=== PATIENT | female | born 1970 | race Caucasian/White ===

== ENCOUNTER → 2016-08-16 | Outpatient (CLI) | payer BC | LOC: LAB 06:32 | DX: E03.9 Hypothyroidism, unspecified (principal) ==

== ENCOUNTER 2017-03-20 07:14 | Observation (INO) | payer BC ==
[2017-03-20] VITALS (14 sets, daily range): BP systolic 111–148; BP diastolic 72–89
[~2017-03-20] VITALS: Ht 167.6 cm; Wt 80.3 kg
--- NOTE | 2017-03-20 11:45 | Anesthesia Record ---
Anesthesia Record Part I Total IV fluids: 2200 EBL (ml): 250 Urine Output: 300 B/P: 118/76 % SaO2: 96 Pulse: 105 Resps: 12 Temp: 98 Patient is: Awake, Stable Stable to PACU at: 1140 at 1145
--- NOTE | 2017-03-20 11:45 | Anesthesia Record ---
Anesthesia Record Part II Discharge time: 1210 Destination: Second Floor PACU nurse assessment review? Yes Patient is: Awake, Stable Anesthesia complications? No at 1141
--- NOTE | 2017-03-20 11:53 | Operative Note ---
Procedure/Operative Record Procedure Date of procedure: 03/20/17 Pre-Op Dx: Menorrhagia, pelvic pain, dysmenorrhea, history of endometriosis, genuine stress urinary incontinence Post-Op Dx: Menorrhagia, pelvic pain, dysmenorrhea, history of endometriosis, genuine stress urinary incontinence, 3 cm LEFT ovarian cyst ,small bladder injury. Procedure performed: Laparoscopically assisted vaginal hysterectomy and bilateral salpingectomy, tension-free vaginal tape, repair of small bladder tear Surgeon: Dr. Osito Mccall Yard Coordinator(s): Kailyn Rogers Anesthesia: Deni Garcia EBL (ml): 250 Clinical note: She is a 46-year-old 1 now para 1 lady who complains of pelvic pain as well as dysmenorrhea. She also has extremely heavy periods. She had stress incontinence that was demonstrated in my office at the time of urodynamics. after having discussed the risks and benefits she elected to have a laparoscopically assisted vaginal hysterectomy and bilateral salpingectomy. She also had TVT. Operative findings: She had a bulky anteverted uterus. The tubes were previously ligated with Filshie clips. She had a 3 cm simple cyst on the LEFT ovary. There was endometriosis in the pelvis. Specifically there was what appeared to be endometriosis over the distal rectum. Otherwise the pelvis was Normal. On examination of her bladder appeared normal. At the end of the case there were jets of urine seen flowing from the ureters. Operative note: She was taken the operating room where general anesthesia was found be adequate. She was prepped and draped in normal sterile fashion in the semi-lithotomy position. A weighted speculum was placed in the vagina and the anterior lip of the cervix was grasped with a tenaculum. I dilated the cervix to approximate 4 mm. I then inserted a Adelita uterine manipulator into the uterine cavity. I injected approximately 10 mL of 1 percent Xylocaine around the umbilicus. I made a small incision within the umbilicus and inserted a Veress needle into the abdominal cavity. The abdominal cavity was then insufflated with carbon dioxide gas to a pressure of 20 mmHg. I then inserted an 11 mm trochar under direct vision. I injected through and through the pubic hairline, made a small incision here and inserted a 5 mm trocar under direct vision. I then identified the inferior epigastric arteries on the LEFT side, went lateral to these and injected through and through. I then did a small skin incision and inserted an 11 mm trocar under direct vision. This was similarly performed on the RIGHT side. The LEFT round ligament was then grasped with Harmonic scalpel and cut through. I then opened up the anterior peritoneum to the midline. I then grasped the LEFT tube and cut through this with Harmonic scalpel. I then cut through the utero- ovarian ligament with Harmonic scalpel. I then took down the posterior aspect of the broad ligament to the level of the uterosacral ligament. The uterine arteries on the LEFT side were then skeletonized. Hemoclips were applied across the uterine arteries and then Harmonic scalpel was used adjacent to the cervix to take down the uterine arteries on the LEFT side. I then grasped the LEFT ovary and made a small incision into the ovarian cyst. I drained the fluid out of the cyst. We then took down the RIGHT round ligament followed by opening up the peritoneum to the midline joining up with the other side. We then cut through the RIGHT tube and RIGHT utero-ovarian ligament. I took down the posterior aspect of the broad ligament to the level of the uterosacral ligament on the RIGHT side. The uterine arteries on the RIGHT side were then skeletonized and hemoclips applied to the uterine arteries. I then took down the uterine artery on the RIGHT side using Harmonic scalpel adjacent to the cervix. At this point it was noted that the uterus was completely ischemic. I freed up the bladder anteriorly using Harmonic scalpel and blunt dissection. After assuring hemostasis I then removed the fallopian tube starting on the RIGHT side I picked up the distal end of the fallopian tube and using harmonic scalpel I cut along the meso salpinx. The tube was then removed through the 11 mm trocar site. This was similarly performed on the opposite side. We assured hemostasis and then let the gas out of the abdomen. We then turned our attention to the vaginal portion the surgery. The patient was placed in the lithotomy position and a weighted spec was placed in the vagina. The anterior and posterior lip of the cervix were grasped with Estes tenacula. I injected approximately 20 mL of 1 percent Xylocaine with epinephrine circumferentially about the cervix. I then circumscribed the cervix with knife. The posterior cul-de-sac was then opened up using Escalante scissors. A long weighted speculum was then placed through this defect. LEFT uterosacral ligament was then clamped cut and suture ligated, and tagged. The LEFT cardinal ligament was then clamped cut and suture ligated. The RIGHT uterosacral ligament was then clamped, cut, suture-ligated and tagged. This was followed by the RIGHT cardinal ligament. I then grasped the anterior peritoneum and using both sharp and blunt dissection dissected the bladder off anteriorly. I removed the long weighted speculum and replaced it with a short weighted speculum. The posterior cuff of the vagina was then closed using running 2-0 Vicryl suture in a locked fashion. I then placed a Giles suture using 0 PDS first through the vagina and peritoneum and then through the LEFT pararectal fascia. I plicated across the posterior peritoneum and then through the RIGHT pararectal fascia. This was then passed through the peritoneum and vagina and LEFT to be tied at the end. I then grasped the anterior peritoneum and I noted that there was a small 2 mm area on the anterior bladder that was leaking. I closed this small rent with a [id number] 2-0 Vicryl suture. I then closed the peritoneum in a pursestring fashion using 2-0 PDS suture. Once again I checked for hemostasis and also noted that there was no further leakage from the bladder. The vaginal mucosa was then closed using running0 Vicryl suture in a locked fashion from LEFT to RIGHT from anterior to posterior. The Giles suture was then tied. I then changed gloves and once again inspected the pelvis. The pelvis was completely hemostatic. I rinsed the pelvis well with warm saline. There was no evidence of leakage of urine. There is no fluid in the pelvis when I returned to the laparoscopic portion of the surgery. After once again assuring hemostasis of then placed 2 pieces of Surgicel at the vaginal vault. The secondary trochars were then removed under direct vision. The sites were hemostatic. I then closed the 11 mm trocar sites deeply with 2-0 Vicryl suture followed by interrupted subcuticular 4-0 Monocryl suture. The 5 mm trocar site was closed with subcuticular 4-0 Monocryl suture. Sterile dressings were applied. the patient was then placed in the lithotomy position and I injected 20 mL of 1 percent Xylocaine with epinephrine along the anterior bladder just below the urethra. I then injected out towards each pubic rami bilaterally. I grasped the anterior mucosa of the vagina just below the urethra and then for another 3 cm. I made a small incision in the vagina between the 2 Allis clamps. The edges of the vaginal mucosa were then grasped with Allis clamps and I dissected out bilaterally to each pubic rami using Metzenbaum scissors. I then drained the bladder and clear fluid was seen to flow. There is no evidence of blood in the bladder. I placed the obturator in the bladder and pulled it to the LEFT side. I placed the LEFT side of the tape first under the pubic rami and through the urogenital diaphragm. It was then passed through the space of Retzius and out through the skin. I then inspected the bladder with a 70 degree cystoscope. There was no evidence of tape in the bladder. There was no evidence of the trocar in the bladder. I observed where there was a small folded up area in the bladder where the small rent had been. There was no evidence of suture within the bladder. It was well clear of the trigone and superior to this. It was in the midline. Jets of urine were seen to flow from both ureters. I then passed the trocar completely through the skin and cut off the trocar. The outer sheath was grasped with a straight clamp. The bladder was drained and the refinery operator light ends recovery was placed in the bladder and pulled to the RIGHT side. I then placed the RIGHT side of the tape under the pubic rami and through the urogenital diaphragm. It was then passed through the space of Retzius and out through the skin. Once again I inspected the bladder with the cystoscope and there was no evidence of tape in the bladder. I then pulled the trocar completely through the skin and cut off the trocar. I then placed a Kandace clamp underneath the urethra and remove the outer sheath of the tape. The tension on the tape was adequate. The vaginal mucosa was then closed with interrupted 2-0 Vicryl suture in a mattress fashion. Hemostasis was once again assured. A Frausto catheter was then placed in the bladder. Clear urine was seen to flow. We will keepa catheter for the next couple of weeks since she had a small rent in the bladder. The patient tolerated the procedure well and was taken to the recovery room in excellent condition. All sponge instrument and needle counts were correct. Estimated blood loss was approximately 250 mL. Conplications: 2 mm small bladder injury. Specimens: Uterus, fallopian tubes at 3502
[2017-03-20 14:58] LABS: URINE BILIRUBIN - DIPSTICK NEGATIVE (NEG); URINE BLOOD 2+ (NEG)
[2017-03-20 16:50] LABS: HEMOGLOBIN 12.9 g/dL (12.2-16.2)
[2017-03-21 04:00] VITALS: BP 104/74
[2017-03-21 06:55] LABS: LYMPH # 1.4 K/mm3 (0.7-4.5); LYMPH % 8.3 % (10-50.0)
[2017-03-21 07:06] LABS: HEMOGLOBIN 11.2 g/dL (12.2-16.2)
--- NOTE | 2017-03-21 08:11 | ACUTE CARE PROGRESS NOTE (QUA) ---
Progress Notes Subjective Date 03/21/17 Time 0808 Note Seems to be doing better this morning. Her pain is reasonably well-controlled. She is really not been ambulating at all yet. Her urine output is normal. She is eating and drinking. Patient/family reports: feeling better, no complaints Objective Findings Last VS-Temp:98.2 B/P:104/74 Pulse:89 Resp:18 SaO2:96 ROOM AIR Last weight lbs:177 oz:00 K.287 Method:Floor Scales Laboratory Tests 03/21/17 0634: Sodium 139, Potassium 3.9, Chloride 105, Carbon Dioxide 27, BUN 12, Creatinine 0.9, Estimated Creat Clear 100, Estimated GFR (MDRD) 68, Glucose 146 H, Calcium 8.2 L, WBC 17.4 H, RBC 3.72 L, Hgb 11.2 L, Hct 33.3 L, MCV 89.5, RDW 12.9, Plt Count 248, MPV 8.7, Gran % 86.7 H, Gran # 15.1 H, Lymphocytes % 8.3 L, Monocytes % 4.7, Eosinophils % 0.2, Basophils % 0.1, Lymphocytes # 1.4, Monocytes # 0.8, Eosinophils # 0.0, Basophils # 0.0, PUBS MCHC 33.3, MCH 29.8 03/20/17 1605: Hgb 12.9, Hct 39.0 03/20/17 1125: Urine Color YELLOW, Urine Appearance CLEAR, Urine pH 6.0, Ur Specific [place] <= 1.005, Urine Protein NEGATIVE, Urine Ketones NEGATIVE, Urine Blood 2+ H, Urine Nitrate NEGATIVE, Urine Bilirubin NEGATIVE, Urine Urobilinogen 0.2, Ur Leukocyte Esterase NEGATIVE, Urine RBC OCC, Urine WBC NONE, Ur Squamous Epith Cells NONE, Urine Bacteria NONE, Urine Glucose NEGATIVE Exam General appearance: normal appearance, alert, awake, no acute distress Eyes: normal exam ENT: normal exam Neck: normal inspection Cardiovascular: normal exam, normal sinus rhythm Respiratory: normal exam, aerating well, clear to auscultation ABD: normal exam, non-distended, normal bowel sounds, no rebound Genitourinary: normal voiding & quantity Extremities: normal exam, full range of motion Musculoskeletal: normal exam Skin: normal exam, normal color Reviewed: vital signs, lab results Assessment/Plan Problem List 1. Menorrhagia 2. Dysmenorrhea 3. Ovarian cyst 4. Stress incontinence (female) (male) Patient condition Improving, Stable Plan: continue current care This inpt stay is expected to cross 2 MNs from start of care No Comments: She is doing a little better this morning. We will plan to get her moving this morning. We will start oral pain medicine. If she does better this morning we will plan to send her home later today. at 0811
[2017-03-21 08:49] VITALS: BP 120/72
[2017-03-21 08:53] VITALS: BP 120/72
[2017-03-21 10:20] LABS: NEUTROPHILS 86 % (42-76)
--- NOTE | 2017-03-21 10:20 | PHARMACY CLINIC NOTE ---
Patient Demographics Patient Demographics Admission date: 03/20/17 Date: 03/21/17 Time: 1019 Allergies Coded Allergies: cephalexin (From KEFLEX) (03/20/17) HEIGHT- FT: 5 IN: 6.00 K.287 VTE General Information Labs: Laboratory Tests 03/21 03/20 0634 1605 Hematology Hgb (12.2 - 16.2 g/dL) 11.2 L 12.9 Hct (37.0 - 47.0 %) 33.3 L 39.0 Plt Count (142 - 424 K/mm3) 248 Disclaimer The following section includes nursing documentation that has been pulled in for pharmacy review. Patient's VTE score: 2 Patient's VTE Risk: VERY LOW RISK VTE prophylaxis NQF [id number] VTE prophylaxis ordered? Yes Type of prophylaxis/treatment: Lovenox at 1024
[2017-03-21 12:30] VITALS: BP 119/74
[2017-03-21] MEDS ORDERED: PERCOCET 5/3251 EACH PO (14:15)
[2017-03-21] MEDS ORDERED: MACROBID100 M3 PO (14:20)
--- NOTE | 2017-03-21 14:20 | Discharge Summary ---
Discharge Summary Admission date: 03/20/17 Discharge date: 03/21/17 Discharge diagnoses: Menorrhagia, dysmenorrhea, ovarian cyst, stress incontinence, small bladder injury Clinical note: She is a 46-year-old lady who complains of heavy painful periods. She also demonstrated stress incontinence in my office and requested TVT. Course in hospital: She is discharged homeOn March 20, 2017 she underwent a laparoscopically assisted vaginal hysterectomy and bilateral salpingectomy. She had a 3-4 cm LEFT ovarian cyst that was drained at the time of her surgery. She underwent tension- free vaginal tape as well. At the time of dissecting her bladder off the cervix was noted that there was a small hole in the bladder. It was approximately 1-2 mm in size. It was repaired with a single [id number] suture. She has done well postoperatively and has remained afebrile throughout her hospitalization. She is eating and drinking and ambulating. We have LEFT a Frausto catheter in and she will go home with a leg bag for the next 10 days. She denies any chest pain, shortness of breath or calf tenderness. Laboratory Tests 03/21/17 0634: Sodium 139, Potassium 3.9, Chloride 105, Carbon Dioxide 27, BUN 12, Creatinine 0.9, Estimated Creat Clear 100, Estimated GFR (MDRD) 68, Glucose 146 H, Calcium 8.2 L, WBC 17.4 H, RBC 3.72 L, Hgb 11.2 L, Hct 33.3 L, MCV 89.5, RDW 12.9, Plt Count 248, MPV 8.7, Gran % 86.7 H, Gran # 15.1 H, Total Counted 100, Lymphocytes % 8.3 L, Monocytes % 4.7, Eosinophils % 0.2, Basophils % 0.1, Neutrophils 86 H, Lymphocytes (Manual) 7 L, Lymphocytes # 1.4, Monocytes ( Manual) 7, Monocytes # 0.8, Eosinophils # 0.0, Basophils # 0.0, Platelet Estimate NORMAL, PUBS MCHC 33.3, MCH 29.8 03/20/17 1605: Hgb 12.9, Hct 39.0 03/20/17 1125: Urine Color YELLOW, Urine Appearance CLEAR, Urine pH 6.0, Ur Specific [place] <= 1.005, Urine Protein NEGATIVE, Urine Ketones NEGATIVE, Urine Blood 2+ H, Urine Nitrate NEGATIVE, Urine Bilirubin NEGATIVE, Urine Urobilinogen 0.2, Ur Leukocyte Esterase NEGATIVE, Urine RBC OCC, Urine WBC NONE, Ur Squamous Epith Cells NONE, Urine Bacteria NONE, Urine Glucose NEGATIVE Plans for ongoing care: She is discharged home to follow-up with me in approximately a weeks' time. She will go home with a catheter and leg bag. We will leave this in for about 10 days. Discharge medications She was given a prescription for Percocet 5/325, 30 tablets. She will also take Macrobid to prevent bladder infection. DC/follow-up instructions She was given the usual instructions with respect to limiting her activity, driving and sexual activity. She was given instructions with respect to wound care. Condition at discharge Stable and improved at 2247
[2017-03-21 15:15] VITALS: BP 119/74
--- OUTSIDE RECORDS SUMMARY | 2017-04-12 02:52 | External Medical Summary Rpt ---
Demographics Preferred Language Moldovan Marital Status Unknown Taoism Affiliation Unknown Race Unknown Ethnic Group Unknown Author Author DAJA Address Unknown Phone Immunization No patient found.
--- OUTSIDE RECORDS SUMMARY | 2017-04-12 02:52 | External Medical Summary Rpt ---
Demographics Preferred Language Bahamian Marital Status Unknown Uatsdin Affiliation Unknown Race Unknown Ethnic Group Unknown Author Author DAJA Address Unknown Phone Immunization No patient found.
--- OUTSIDE RECORDS SUMMARY | 2017-04-12 02:52 | External Medical Summary Rpt ---
Author Author , DAJA FARNSWORTH Address Unknown Phone Purpose Continuity of Care Document - 12-15-2016 through 2016 Results Labs Lab Lab Date Result Refere Interp Status Commen Order Detail nces retati t Range on Differential panel, method unspecified - (03-21-2017 06:34) LYMPH 7 % 10% - Low complet 017 50% ed 06:34 Platele NORMAL complet ts 017 ed [Presen 06:34 ce] in Blood by Light microsc opy
--- OUTSIDE RECORDS SUMMARY | 2017-04-12 02:52 | External Medical Summary Rpt ---
Author Author [employer] Organization [employer] Address Unknown Phone Unavailable Purpose Continuity of Care Document - through 2016
--- OUTSIDE RECORDS SUMMARY | 2017-04-12 02:52 | External Medical Summary Rpt ---
Author Author , DAJA FARNSWORTH Address Unknown Phone [email or web address] Purpose Continuity of Care Document - 12-15-2016 [...]
--- OUTSIDE RECORDS SUMMARY | 2017-04-12 02:53 | External Medical Summary Rpt ---
Author Author [employer], [employer] Organization [employer] Address Unknown Phone Unavailable Results CBC W Auto Differential panel in Blood Observa Value Referen Units Interpr Notes Date tion ce etation Range Basophils 0 - 0.2 K/MM3 Normal No Sep 19 informati 2017 6:34 [#/volume on in AM ] in source Blood by data Automated count Basophils 0.1 - 2.0 % Normal No Sep 19 /100 informati 2017 6:34 leukocyte on in AM s in source Blood by data Automated count Eosinophi 0.0 - 0.4 K/mm3 Normal No Sep 19 ls informati 2017 6:34 [#/volume on in AM ] in source Blood by data Automated count Eosinophi 0.1 - % Normal No Sep 19 ls/100 12.0 informati 2017 6:34 leukocyte on in AM s in source Blood by data Automated count Granulocy 1.8 - 7.8 K/mm3 High No Sep 19 coby informati 2017 6:34 [#/volume on in AM ] in source Blood by data Automated count Granulocy 37.0 - % High No Sep 19 coby/100 80.0 informati 2017 6:34 leukocyte on in AM s in source Blood by data Automated count Hematocri 37.0 - % Low No Sep 19 t [Volume 47.0 informati 2017 6:34 on in AM Fraction] source of Blood data Hemoglobi 12.2 - g/dL Low No Sep 19 n 16.2 informati 2017 6:34 [Mass/vol on in AM ume] in source Blood data Lymphocyt 0.7 - 4.5 K/mm3 Normal No Sep 19 es informati 2017 6:34 [#/volume on in AM ] in source Unspecifi data ed specimen by Automated count Lymphocyt 10 - 50.0 % Low No Sep 19 es informati 2017 6:34 [#/volume on in AM ] in source Unspecifi data ed specimen by Automated count Erythrocy 27 - 31.2 pg Normal No Sep 19 te mean informati 2017 6:34 corpuscul on in AM ar source hemoglobi data n [Entitic mass] Erythrocy 31.8 - g/dl Normal No Sep 19 te mean 35.4 informati 2017 6:34 corpuscul on in AM ar source hemoglobi data n concentra tion [Mass/vol ume] by Automated count Erythrocy 82.2 - fl Normal No Sep 19 te mean 97.8 informati 2017 6:34 corpuscul on in AM ar volume source [Entitic data volume] by Automated count Monocytes 0.1 - 1.0 K/mm3 Normal No Sep 19 informati 2017 6:34 [#/volume on in AM ] in source Blood by data Automated count Monocytes 1.7 - 9.3 % Normal No Sep 19 /100 informati 2017 6:34 leukocyte on in AM s in source Blood by data Automated count Platelet 7.4 - fl Normal No Sep 19 mean 10.4 informati 2017 6:34 volume on in AM [Entitic source volume] data in Blood by Automated count Platelets 142 - 424 K/mm3 Normal No Sep 19 informati 2017 6:34 [#/volume on in AM ] in source Blood data Erythrocy 4.2 - 5.4 M/mm3 Low No Sep 19 coby informati 2017 6:34 [#/volume on in AM ] in source Amniotic data fluid Erythrocy 11.5 - % Normal No Sep 19 te 17.5 informati 2017 6:34 distribut on in AM ion width source [Entitic data volume] by Automated count Leukocyte 4.8 - K/MM3 High No Sep 19 s 10.8 informati 2017 6:34 [#/volume on in AM ] in source Blood data Differential panel, method unspecified - Observa Value Referen Units Interpr Notes Date tion ce etation Range LYMPH 7 10 - 50 % Low No Sep 19 informa 2017 tion in 6:34 AM source data Monocytes 2 - 9 % Normal No Sep 19 /100 informati 2017 6:34 leukocyte on in AM s in source Blood by data Automated count Platele NORMAL No No No No Sep 19 ts informa informa informa informa 2017 [Presen tion in tion in tion in tion in 6:34 AM ce] in source source source source Blood data data data data by Light microsc opy Neutrophi 42 - 76 % High No Sep 19 ls informati 2017 6:34 [#/volume on in AM ] in source Blood by data Automated count Cells No #CELLS No No Sep 19 Counted informati informati informati 2017 6:34 Total [#] on in on in on in AM in Blood source source source data data data Basic metabolic panel in Blood Observa Value Referen Units Interpr Notes Date tion ce etation Range Urea 7 - 18 mg/dL Normal No Sep 19 nitrogen informati 2017 6:34 [Mass/vol on in AM ume] in source Serum or data Plasma Calcium 8.5 - mg/dL Low No Sep 19 [Mass/vol 10.1 informati 2017 6:34 ume] in on in AM Serum or source Plasma data Chloride 98 - 107 mmoL/L Normal No Sep 19 [Moles/vo informati 2017 6:34 lume] in on in AM Serum or source Plasma data Carbon 21.0 - mmoL/L Normal No Sep 19 dioxide, 32.0 informati 2017 6:34 total on in AM [Moles/vo source lume] in data Serum or Plasma Creatinin 0.55 - mg/dL Normal No Sep 19 e 1.02 informati 2017 6:34 [Mass/vol on in AM ume] in source Serum or data Plasma Creatinin 50 - 200 ML/MIN Normal No Sep 19 e renal informati 2017 6:34 clearance on in AM source predicted data by Cockcroft -Gault formula Estimated 59- ML/MIN No REFERENCE Sep 19 informati RANGE: 2017 6:34 glomerula on in >60 AM r source ML/MIN/1. filtratio data 73 SQUARE n rate METERSIf (GF this patient is -A merican, then multiply theresult by 1.210. Glucose 74 - 106 mg/dL High No Sep 19 [Mass/vol informati 2017 6:34 ume] in on in AM Serum or source Plasma data Potassium 3.5 - 5.1 mmoL/L Normal No Sep 19 informati 2017 6:34 [Moles/vo on in AM lume] in source Serum or data Plasma Sodium 136 - 145 mmoL/L Normal No Sep 19 [Moles/vo informati 2017 6:34 lume] in on in AM Serum or source Plasma data Hemoglobin & Hematocrit panel in Blood Observa Value Referen Units Interpr Notes Date tion ce etation Range Hematocri 37.0 - % Normal No Sep 18 t [Volume 47.0 informati 2017 4:05 on in PM Fraction] source of Blood data Hemoglobi 12.2 - g/dL No No Sep 18 n 16.2 informati informati 2017 4:05 [Mass/vol on in on in PM ume] in source source Blood data data Choriogonadotropin.beta subunit [Units] in 24 hour Urine Observa Value Referen Units Interpr Notes Date tion ce etation Range Choriogon NEG No No Kelly Sep 18 adotropin informati informati 2017 7:26 .beta on in on in AM subunit source source [Units] data data in 24 hour Urine Basic metabolic panel in Blood Observa Value Referen Units Interpr Notes Date tion ce etation Range Urea 7 - 18 mg/dL Normal No Sep 15 nitrogen informati 2017 1:19 [Mass/vol on in PM ume] in source Serum or data Plasma Calcium 8.5 - mg/dL Normal No Sep 15 [Mass/vol 10.1 informati 2017 1:19 ume] in on in PM Serum or source Plasma data Chloride 98 - 107 mmoL/L Normal No Sep 15 [Moles/vo informati 2017 1:19 lume] in on in PM Serum or source Plasma data Carbon 21.0 - mmoL/L Normal No Sep 15 dioxide, 32.0 informati 2017 1:19 total on in PM [Moles/vo source lume] in data Serum or Plasma Creatinin 0.55 - mg/dL Normal No Sep 15 e 1.02 informati 2017 1:19 [Mass/vol on in PM ume] in source Serum or data Plasma Estimated 59- ML/MIN No REFERENCE Sep 15 informati RANGE: 2017 1:19 glomerula on in >60 PM r source ML/MIN/1. filtratio data 73 SQUARE n rate METERSIf (GF this patient is -A merican, then multiply theresult by 1.210. Glucose 74 - 106 mg/dL High No Sep 15 [Mass/vol informati 2017 1:19 ume] in on in PM Serum or source Plasma data Potassium 3.5 - 5.1 mmoL/L Normal No Sep 15 informati 2017 1:19 [Moles/vo on in PM lume] in source Serum or data Plasma Sodium 136 - 145 mmoL/L Normal No Sep 15 [Moles/vo informati 2017 1:19 lume] in on in PM Serum or source Plasma data CBC W Auto Differential panel in Blood Observa Value Referen Units Interpr Notes Date tion ce etation Range Basophils 0 - 0.2 K/MM3 Normal No Sep 15 informati 2016 1:19 [#/volume on in PM ] in source Blood by data Automated count Basophils 0.1 - 2.0 % Normal No Sep 15 /100 informati 2016 1:19 leukocyte on in PM s in source Blood by data Automated count Eosinophi 0.0 - 0.4 K/mm3 Normal No Sep 15 ls informati 2016 1:19 [#/volume on in PM ] in source Blood by data Automated count Eosinophi 0.1 - % Normal No Sep 15 ls/100 12.0 informati 2016 1:19 leukocyte on in PM s in source Blood by data Automated count Granulocy 1.8 - 7.8 K/mm3 Normal No Sep 15 coby informati 2016 1:19 [#/volume on in PM ] in source Blood by data Automated count Granulocy 37.0 - % Normal No Sep 15 coby/100 80.0 informati 2016 1:19 leukocyte on in PM s in source Blood by data Automated count Hematocri 37.0 - % Normal No Sep 15 t [Volume 47.0 informati 2016 1:19 on in PM Fraction] source of Blood data Hemoglobi 12.2 - g/dL Normal No Sep 15 n 16.2 informati 2016 1:19 [Mass/vol on in PM ume] in source Blood data Lymphocyt 0.7 - 4.5 K/mm3 Normal No Sep 15 es informati 2016 1:19 [#/volume on in PM ] in source Unspecifi data ed specimen by Automated count Lymphocyt 10 - 50.0 % Normal No Sep 15 es informati 2016 1:19 [#/volume on in PM ] in source Unspecifi data ed specimen by Automated count Erythrocy 27 - 31.2 pg Normal No Sep 15 te mean informati 2016 1:19 corpuscul on in PM ar source hemoglobi data n [Entitic mass] Erythrocy 31.8 - g/dl Normal No Sep 15 te mean 35.4 informati 2016 1:19 corpuscul on in PM ar source hemoglobi data n concentra tion [Mass/vol ume] by Automated count Erythrocy 82.2 - fl Normal No Sep 15 te mean 97.8 informati 2016 1:19 corpuscul on in PM ar volume source [Entitic data volume] by Automated count Monocytes 0.1 - 1.0 K/mm3 Normal No Sep 15 inform2016 1:19 [#/volume on in PM ] in source Blood by data Automated count Monocytes 1.7 - 9.3 % Normal No Sep 15 /100 inform2016 1:19 leukocyte on in PM s in source Blood by data Automated count Platelet 7.4 - fl Normal No Sep 15 mean 10.4 inform2016 1:19 volume on in PM [Entitic source volume] data in Blood by Automated count Platelets 142 - 424 K/mm3 Normal No Sep 15 inform2016 1:19 [#/volume on in PM ] in source Blood data Erythrocy 4.2 - 5.4 M/mm3 Normal No Sep 15 coby inform2016 1:19 [#/volume on in PM ] in source Amniotic data fluid Erythrocy 11.5 - % Normal No Sep 15 te 17.5 informati 2016 1:19 distribut on in PM ion width source [Entitic data volume] by Automated count Leukocyte 4.8 - K/MM3 Normal No Sep 15 s 10.8 2016 1:19 [#/volume on in PM ] in source Blood data Comprehensive metabolic 2000 panel in Serum or Plasma Observa Value Referen Units Interpr Notes Date tion ce etation Range Albumin/G 1.1 - 1.8 No Low No Dec 15 lobulin informati inform2016 [Mass on in on in ratio] in source source Serum or data data Plasma Albumin 3.4 - 5.0 gm/dL Normal No Dec 15 [Mass/vol informati 2016 ume] in on in Serum or source Plasma data Alkaline 46 - 116 U/L Normal No Dec 15 phosphata 2016 se on in [Enzymati source c data activity/ volume] in Serum or Plasma Bilirubin 0.2 - 1.0 mg/dL Normal No Dec 15 .total inform2016 [Mass/vol on in ume] in source Serum or data Plasma Urea 7 - 18 mg/dL Normal No Dec 15 nitrogen inform2016 [Mass/vol on in ume] in source Serum or data Plasma Calcium 8.5 - mg/dL Normal No Dec 15 [Mass/vol 10.1 informati 2016 ume] in on in Serum or source Plasma data Chloride 98 - 107 mmoL/L Normal No Dec 15 [Moles/vo informati 2016 lume] in on in Serum or source Plasma data Carbon 21.0 - mmoL/L Low No Dec 15 dioxide, 32.0 2016 total on in [Moles/vo source lume] in data Serum or Plasma Creatinin 0.55 - mg/dL Normal No Dec 15 e 1.02 2016 [Mass/vol on in ume] in source Serum or data Plasma Estimated 59- ML/MIN No REFERENCE Dec 15 informati RANGE: 2017 glomerula on in >60 r source ML/MIN/1. filtratio data 73 SQUARE n rate METERSIf (GF this patient is -A merican, then multiply theresult by 1.210. Globulin 1.3 - 3.2 gm/dL High No Dec 15 [Mass/vol informati 2016 ume] in on in Serum source data Glucose 74 - 106 mg/dL Normal No Dec 15 [Mass/vol informati 2016 ume] in on in Serum or source Plasma data Potassium 3.5 - 5.1 mmoL/L Normal No Dec 152016 [Moles/vo on in lume] in source Serum or data Plasma Sodium 136 - 145 mmoL/L Normal No Dec 15 [Moles/vo informati 2016 lume] in on in Serum or source Plasma data Aspartate 15 - 37 U/L Low No Dec 152016 aminotran on in sferase source [Enzymati data c activity/ volume] in Serum or Plasma Alanine 12 - 78 U/L Normal No Dec 15 aminotran 2016 sferase on in [Enzymati source c data activity/ volume] in Serum or Plasma Protein 6.4 - 8.2 gm/dL Normal No Dec 15 [Mass/vol informati 2016 ume] in on in Serum or source Plasma data Lipid 1996 panel in Serum or Plasma Observa Value Referen Units Interpr Notes Date tion ce etation Range Cholester < 200 mg/dL High No Dec 15 ol 2016 [Moles/vo on in lume] in source Unspecifi data ed specimen Cholester 40 - 60 MG/DL Normal No Dec 15 ol in HDL 2016 on in [Mass/vol source ume] in data Serum or Plasma Cholester 0 - 130 mg/dL Normal No Dec 15 ol in LDL 2016 on in [Mass/vol source ume] in data Serum or Plasma by calculati on Triglycer 30 - 200 mg/dL Normal No Dec 15 chetan 2016 [Moles/vo on in lume] in source Serum or data Plasma Cholester 0 - 40 No Normal No Dec 15 ol in informati 2016 VLDL on in on in [Mass/vol source source ume] in data data Serum or Plasma Thyrotropin [Units/volume] in Serum or Plasma Observa Value Referen Units Interpr Notes Date tion ce etation Range Thyrotrop 0.358 - uIU/ml High No Dec 15 in 3.740 2016 [Units/vo on in lume] in source Serum or data Plasma CBC W Auto Differential panel in Blood Observa Value Referen Units Interpr Notes Date tion ce etation Range Basophils 0 - 0.2 K/MM3 Normal No Dec 152016 [#/volume on in ] in source Blood by data Automated count Basophils 0.1 - 2.0 % Normal No Dec 15 /100 2016 leukocyte on in s in source Blood by data Automated count Eosinophi 0.0 - 0.4 K/mm3 Normal No Dec 15 ls 2016 [#/volume on in ] in source Blood by data Automated count Eosinophi 0.1 - % Normal No Dec 15 ls/100 12.0 2016 leukocyte on in s in source Blood by data Automated count Granulocy 1.8 - 7.8 K/mm3 Normal No Dec 15 coby 2016 [#/volume on in ] in source Blood by data Automated count Granulocy 37.0 - % Normal No Dec 15 coby/100 80.0 2016 leukocyte on in s in source Blood by data Automated count Hematocri 37.0 - % Normal No Dec 15 t [Volume 47.0 2016 on in Fraction] source of Blood data Hemoglobi 12.2 - g/dL Normal No Dec 15 n 16.2 2016 [Mass/vol on in ume] in source Blood data Lymphocyt 0.7 - 4.5 K/mm3 Normal No Dec 15 es 2016 [#/volume on in ] in source Unspecifi data ed specimen by Automated count Lymphocyt 10 - 50.0 % Normal No Dec 15 es 2016 [#/volume on in ] in source Unspecifi data ed specimen by Automated count Erythrocy 27 - 31.2 pg Normal No Dec 15 te mean inform2016 corpuscul on in ar source hemoglobi data n [Entitic mass] Erythrocy 31.8 - g/dl Normal No Dec 15 te mean 35.4 inform2016 corpuscul on in ar source hemoglobi data n concentra tion [Mass/vol ume] by Automated count Erythrocy 82.2 - fl Normal No Dec 15 te mean 97.8 informati 2016 corpuscul on in ar volume source [Entitic data volume] by Automated count Monocytes 0.1 - 1.0 K/mm3 Normal No Dec 15 inform2016 [#/volume on in ] in source Blood by data Automated count Monocytes 1.7 - 9.3 % Normal No Dec 15 /100 informati 2016 leukocyte on in s in source Blood by data Automated count Platelet 7.4 - fl Normal No Dec 15 mean 10.4 informati 2016 volume on in [Entitic source volume] data in Blood by Automated count Platelets 142 - 424 K/mm3 Normal No Dec 15 informati 2016 [#/volume on in ] in source Blood data Erythrocy 4.2 - 5.4 M/mm3 Normal No Dec 15 coby informati 2016 [#/volume on in ] in source Amniotic data fluid Erythrocy 11.5 - % Normal No Dec 15 te 17.5 informati 2016 distribut on in ion width source [Entitic data volume] by Automated count Leukocyte 4.8 - K/MM3 Normal No Dec 15 s 10.8 informati 2016 [#/volume on in ] in source Blood data
--- OUTSIDE RECORDS SUMMARY | 2017-04-12 02:53 | External Medical Summary Rpt ---
[...] - 7.8 K/mm3 High No Sep 19 coyb informati 2017 6:34 [#/volume on in AM [...]
== END 2017-03-21 15:30 | disposition home or self-care (01) ==
LOC: SDC 07:14 → OB 07:18 → SDC 08:45 → OB 12:25
PROVIDERS: Nurse Practitioner Obstetrics & Gynecology
PROC: 0TQB0ZZ Repair Bladder, Open Approach (ICD-10-PCS; principal; 2017-03-20 08:45)
PROC: 0UT7FZZ Resection of Bilateral Fallopian Tubes, Via Natural or Artificial Opening With Percutaneous Endoscopic Assistance (ICD-10-PCS; principal; 2017-03-20 08:45)
PROC: 0UT9FZZ Resection of Uterus, Via Natural or Artificial Opening With Percutaneous Endoscopic Assistance (ICD-10-PCS; principal; 2017-03-20 08:45)
PROC: 0TU Urinary System, Supplement (ICD-10-PCS; principal; 2017-03-20 08:45)
PROC: 0UTC7ZZ Resection of Cervix, Via Natural or Artificial Opening (ICD-10-PCS; principal; 2017-03-20 08:45)
DX: N92.0 Excessive and frequent menstruation with regular cycle (principal); R10.2 Pelvic and perineal pain; N94.6 Dysmenorrhea, unspecified; N80.9 Endometriosis, unspecified; N39.3 Stress incontinence (female) (male); N83.202 Unspecified ovarian cyst, left side; N99.71 Accidental puncture and laceration of a genitourinary system organ or structure during a genitourinary system procedure
CPT/HCPCS: C1771; G0378; J2405